=== PATIENT | male | born 1970 | race Caucasian/White ===

== ENCOUNTER 2024-04-11 06:47 | Emergency (ER) | payer BC, SELFPAY ==
[2024-04-11 06:50] VITALS: BP 111/65
--- NOTE | 2024-04-11 07:53 | ED.GENMED ---
History of Present Illness
General
Chief Complaint: Anxiety
Source: patient
Exam Limitations: none
Time Seen by Provider: 04/11/24 06:56
Nursing documentation reviewed up to this point in time: agreed with
History of Present Illness
History of Present Illness:
Patient with history of longstanding anxiety, who has been maintained well on Zoloft 50 mg daily for over 15 years, presents to ED secondary to increased anxiety and difficulty concentrating, along with decreased appetite and inability to sleep,
over the past 2 weeks. Patient has been speaking with his primary care physician as well as his therapist. His Zoloft has been increased to 200 mg daily, along with addition of Xanax to be used as needed as well as propranolol, . Despite change
in medications, patient has not seen improvement, and feels worse. Patient feels as though he is in need of acute treatment at this time. In addition, patient reports approx 15 lb weight loss over the past 1 month. Denies suicidal/homicidal
ideation. Denies recent illness. Denies use of any illicit medications. There is family history of bipolar disorder. In terms of any sig. recent changes, pt has transitioned to a new position at work and he feels as though his new position may not
be suitable for him. At times, he feels as though he is 'trapped'.
Review of Systems
Review of Systems
Allergies reviewed?: Yes
All Other Systems: ROS reviewed and negative except as documented in HPI and ROS
Constitutional: Reports no symptoms
EENT: Reports no symptoms
Respiratory: Reports trouble breathing
Cardiac: Reports no symptoms
ABD/GI: Reports no symptoms
Musculoskeletal: Reports no symptoms
Skin: Reports no symptoms
Neurological: Reports no symptoms
Psychiatric: Reports anxiety
Phy Exam
Physical Exam
Physical Exam:
Physical Exam
General: mild distress, not acutely ill. afebrile
Head: nc/at. eomi
Neck: supple. normal range of motion.
Heart: s1/s2 regular rate and rhythm, no murmur. equal radial pulses.
Lungs: no acute respiratory distress. clear bilaterally
Abdomen: normal bowel sounds. not tender.
Neuro: alert and oriented. no focal neurological deficits
Skin: no rash
Psychiatric: interactive and cooperative. anxious appearing.
Extremities: no edema. no calf tenderness.
Course
Orders/Labs/Results
Orders:
Orders
04/11/24 07:44
Electrocardiogram (*1) Urgent
Reason for Study: Palpitations
EKG- Treatment ONCE
04/11/24 07:49
PSYCHIATRY CONSULT Urgent
Consulting Provider: Akhil Solomon
Was physician already notified: Yes
Reason for consult: anxiety
0.9% Sodium Chloride 1000 ml [Nss] 1,000 ml IV BOLUS
Lorazepam [Ativan] 1 mg IV NOW STA
04/11/24 07:51
Complete Blood Count/With Diff Urgent
Comprehensive Metabolic Panel Urgent
Magnesium Urgent
TSH Urgent
04/11/24 10:10
Lorazepam [Ativan] 1 mg IV NOW STA
04/11/24 12:43
Lorazepam [Ativan] 1 mg .ROUTE .STK-MED ONE
04/11/24 12:46
Lorazepam [Ativan] 1 mg PO NOW STA
04/11/24 14:25
Drug Screen, Urine [Urine Drug Abuse Screen] Urgent
Date Specimen was Collected: 04/11/24
Time Specimen was Collected: 14:25
Fentanyl, Urine Urgent
Urinalysis Reflex To Culture Urgent
Date Specimen was Collected: 04/11/24
Time Specimen was Collected: 14:25
04/11/24 16:25
Lorazepam [Ativan] 1 mg .ROUTE .STK-MED ONE
04/11/24 16:29
Lorazepam [Ativan] 1 mg PO NOW STA
Abnormal Lab Results
04/11/24 04/11/24
07:51 14:25
MCHC 37.3 H g/dL
(33.0-37.0)
Glucose 105 H mg/dl
(70-99)
U Benzodiazepines Scrn Positive H
(Negative)
04/11/24 07:51
04/11/24 07:51
Vital Signs
Initial and Last Documented VS:
Initial Vital Signs
Pulse Resp BP Pulse Ox
76 19 111/65 95
04/11/24 06:50 04/11/24 06:50 04/11/24 06:50 04/11/24 06:50
Last Documented Vital Signs
Pulse Resp BP Pulse Ox
102 20 116/64 96
04/11/24 17:10 04/11/24 17:10 04/11/24 17:10 04/11/24 17:10
MDM/Problems Addressed
MDM/Problems Addressed:
History and exam consistent with significant anxiety reaction, likely requiring an acute inpatient treatment, as patient has failed multiple outpatient treatments.
Patient evaluated in ED by Dr. Solomon, psychiatry. Decision made to transfer patient to inpatient psychiatric facility for further evaluation and treatment.
Patient given 2 doses of Ativan in ED, along with oral tablet, with mild improvement symptoms. Patient remains afebrile and hemodynamically stable during observation.
Patient is medically cleared at this time.
ED case management also consult to facilitate potential transition to inpatient psychiatric facility.
*EKG
Interpreted by ED Provider?: Yes
EKG Intrepretation Date: 04/11/24
Heart Rate: 74
Rate: bradycardiac
Rhythm: sinus and sinus arrhythmia
[place]: left axis deviation
Interval: normal interval
QRS Pattern: normal QRS
Ischemia: no ischemia
*Critical Care Note
Total Time (30-74mins, 75-104mins- exclusive of procedures): Not Applicable
ED Attending Note
-
Portions of this chart may have been created with voice recognition software.� Occasional wrong word or��sound alike� substitutions may have occurred due to the inherent limitations of voice recognition software.
Discharge Plan
Departure
Patient Disposition: Psych Facility
Date of Disposition: 04/11/24
Time of Disposition: 13:34
Discharge Problem:
Anxiety reaction
Referrals:
Parminder Singh DO [Family Provider] -
Interventions
Interventions:
*Risk Screen - Suicide Last Done: 04/11/24 06:50
*General Assessment Last Done: 04/11/24 06:50
*Neglect/Abuse Screening Last Done: 04/11/24 06:50
ED- Fall Risk Assessment Last Done: 04/11/24 07:35
*ED COVID-19 Vaccine History Last Done: 04/11/24 06:50
*Nursing Disposition Last Done: 04/11/24 17:19
ED-Psychological Assessment Last Done: 04/11/24 07:35
Discharge Date and Time
Discharge Date/Time: 04/11/24 17:15
Print Language: YAKUT
[2024-04-11] MEDS: NSS 1000 IV (07:55)
[2024-04-11] MEDS: ATIVAN 1 MG IV ×2 (07:55→10:13)
[2024-04-11 08:01] LABS: % Basophils 0.5 % (0-2); % Eosinophils 0.4 % (0-6); % Immature Granulocytes 0.3 % (0-0.5); % Lymphocytes 23.5 % (20.5-51.1); % Monocytes 6.5 % (1.7-9.3); % Neutrophils 68.8 % (42.2-75.2); Absolute Lymphocytes 1.8 10^3/uL (1.2-3.4); Absolute Monocytes 0.5 10^3/uL (0.1-0.6); Absolute Neutrophils 5.3 10^3/uL (1.4-6.5); Hematocrit 41.5 % (39.0-52.0); Hemoglobin 15.5 g/dL (13.0-18.0); Mean Corp Hgb Conc. 37.3 g/dL (33.0-37.0); Mean Corpuscular Hgb 30.7 pg (27.0-31.0); Mean Corpuscular Volume 82.2 fL (80.0-94.0); Nucleated Red Blood Cells % 0 % (-); Platelet Count 251 10^3/uL (130-400); Red Blood Cell Count 5.05 10^6/uL (4.70-6.10); Red Cell Dist. Width 12.1 % (11.5-14.5); White Blood Cell Count 7.7 10^3/uL (4.8-10.8)
[2024-04-11 08:30] LABS: ALT (SGPT) 26 U/L (0-50); AST (SGOT) 28 U/L (17-59); Albumin 4.5 g/dl (3.5-5.0); Alkaline Phosphatase 65 U/L (38-126); Blood Urea Nitrogen 14 mg/dl (9-20); Calcium 9.7 mg/dl (8.4-10.2); Carbon Dioxide 27 mmol/L (22-30); Chloride 105 mmol/L (98-107); Glucose 105 mg/dl (70-99); Potassium 4.2 mmol/L (3.5-5.1); Sodium 138 mmol/L (135-145); Total Protein 6.6 g/dl (6.3-8.2); eGFR > 60.00
[2024-04-11 09:00] LABS: TSH 1.06 uIU/ml (0.47-4.68)
[2024-04-11 10:24] VITALS: BP 122/73
--- NOTE | 2024-04-11 12:37 | CS.PSYCHR ---
Addendum entered and electronically signed by Akhil Solomon MD 04/11/24 15:03:
Diagnosis update: primary- Major Depressive d/o, single episode, severe, no psychosis
secondary- Anxiety reaction, with panic episodes
Original Note:
Consult Summary - Psychiatry
-
Pt is 54 yo male, who presented to ED complaining of severe anxiety/panic episodes, crying, feeling overwhelmed. Pt has long history of anxiety, was maintained on Sertraline 50 mg daily for over 10 years, managed by PCP. Dose was increased to 100
mg daily about 10 to 14 days ago, but pt reports feeling worse overall. Pt also prescribed propranolol, and Xanax 0.5 mg prn, taking about twice a day, but not able to manage severe anxiety, bouts of panic, feeling hopeless and 'trapped' by recent
career decision. He c/o difficulty concentrating, decreased appetite with 15 lb weight loss, and inability to sleep, over the past 2 weeks. Patient has been speaking with his outpatient therapist. Patient feels as though he is in need of inpatient
psychiatric treatment; does not feel able to handle severity of symptoms on an outpatient basis. Pt denies suicidal ideation, denies psychotic symptoms. Pt denies any substance use.
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 He had side effects, including 'zaps' if he delayed taking one dose, so he eventually
switched over to Sertraline. Stable for years on Sertraline 50 mg daily with occasional anxiety, managed well with therapy, exercise, meditation.
No history of inpatient treatment. No history of suicidal ideation/behavior. No history of adore.
FHx: father- severe anxiety, similar issues, was diagnosed with Bipolar d/o more recently
PMH: denies any ongoing illness
SH: , present for eval. 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
pressure.
MSE: alert, oriented, calm after receiving Ativan 1 mg, makes good eye contact. Affect appropriate, mood anxious/overwhelmed and depressed. Denies SI. Insight fair to good, has negative/hopeless preoccupation. No signs of psychosis. No agitation.
Imp: Panic d/o, exacerbated by life event- stressed due to recent career change
Unspecified Depressive d/o; R/o Major Depressive d/o, single, severe
Rec: inpatient psychiatric placement, with anticipated step-down to [facility] when stabilized
Would continue Sertraline 100 mg Daily for now, continue Ativan prn for severe anxiety/panic
[2024-04-11] MEDS: ATIVAN 1 MG PO ×2 (12:47→16:29)
[2024-04-11 12:50] VITALS: BP 121/75
--- NOTE | 2024-04-11 12:51 | CM ---
Addendum entered by Demetria Louise RN 04/11/24 16:44:
CM updated patient and . Patient signed [facility] Consents. CM faxed consents. CM was requested to ask if patient could be transported by . [facility] was agreeable to have patient be transported by .
Addendum entered by Demetria Louise RN 04/11/24 16:16:
[facility]
Nursing
Report
[phone]
Addendum entered by Demetria Louise RN 04/11/24 16:12:
Patient has been accepted to [facility].
Authorization Number from [employer]
[id number]
04/11-04/14
Addendum entered by Demetria Louise RN 04/11/24 15:36:
CM faxed amended psychiatry note to [facility]. CM will await call back.
Addendum entered by Demetria Louise RN 04/11/24 14:56:
Cm spoke with patient and . stated that his therapist Dr. Natalya Laureano had made a call to the psychiatrist at [facility] with the plan for admission directly. CM spoke with admissions at [facility] to update that patient's
therapist believes his has major depressive disorder which would qualify him for inpatient psychiatric stay.
Admissions will update this CM.
Addendum entered by Demetria Louise RN 04/11/24 14:11:
[facility] declined as they have no beds.
Addendum entered by Demetria Louise RN 04/11/24 13:52:
CM spoke with Shahriar at [facility]. CM will send clinical to [phone]. Cm will await acceptance.
Addendum entered by Demetria Louise RN 04/11/24 13:45:
CM spoke with Soraya at [facility]. She escalated our request to speak with psychiatry. As per management at [facility], they are unable to do a doctor to doctor.
Addendum entered by Demetria Louise RN 04/11/24 13:33:
CM was made aware that [facility] has declined. CM updated Dr. Stokes and Dr. Salas.
Addendum entered by Giovanna Cm 04/11/24 13:25:
[facility] admissions staff confirmed they received clinicals.
Original Note:
CM spoke with Admissions staff at [facility]. They would like facesheet, labs, psych assessement, H&P and medical clearance faxed over.
CM confirmed fax number: [phone]
Phone number: [phone].
Awaiting psych evaluation and will fax over clinicals to Admissions.
[2024-04-11 14:55] LABS: Urine Albumin Negative (Neg - Trace); Urine Bilirubin Negative (Negative); Urine Character Clear (Clear); Urine Color Yellow; Urine Glucose Negative (Negative); Urine Ketone Negative (Negative); Urine Leukocyte Negative (Negative); Urine Nitrite Negative (Negative); Urine Occult Blood Negative (Negative); Urine Urobilinogen Negative (Neg - 1+)
[2024-04-11 15:19] LABS: Amphetamines Negative (Negative); Barbiturates Negative (Negative); Benzodiazepines Positive (Negative); Buprenorphine Negative (Negative); Cocaine Negative (Negative); Marijuana Negative (Negative); Methadone Negative (Negative); Methamphetamines Negative (Negative); Opiates Negative (Negative); Phencyclidine Negative (Negative); Tricyclic Antidepressants Negative (Negative)
[2024-04-11 15:44] LABS: Fentanyl, Urine Negative (Negative)
[2024-04-11 17:10] VITALS: BP 116/64
== END 2024-04-11 17:15 ==
LOC: EMR 06:47
PROVIDERS: CONSULT PHYSICIAN Psychiatry & Neurology Psychiatry; EMERGENCY PHYSICIAN Emergency Medicine; FAMILY PHYSICIAN Family Medicine
DX: F41.9 Anxiety disorder, unspecified (principal); R63.4 Abnormal weight loss; Z79.899 Other long term (current) drug therapy
CPT/HCPCS: 99283; 96374; 96376; 80053; 80306; 80307; 81003; 83735; 84443; 85025; 93005